=== PATIENT | male | born 1980 | race Caucasian/White ===

== ENCOUNTER 2025-03-31 00:37 | Emergency (ER) | payer MEDICAID, SELFPAY ==
[2025-03-31 00:38] VITALS: BP 157/76; PULSE 65; RESP 16; TEMP 38.2; O2SAT 99; BMI 34.2
--- NOTE | 2025-03-31 01:25 | CT_ITS ---
PROCEDURE: ABDOMEN/PELVIS W IV CONT ONLY 03/31/2025 REASON FOR EXAM: ABD PAIN TECHNIQUE: ABDOMEN/PELVIS W IV CONT ONLY. Coronal and Sagittal reconstruction series were provided. ORAL CONTRAST TYPE: None. CONTRAST: Isovue 370 VOLUME: 100 mL One or more dose reduction techniques were used (e.g., Automated exposure control, adjustment of the mA and/or kV according to patient size, use of iterative reconstruction technique. RADIATION DOSE SUMMARY: CTDlvol: 21.66 mGy DLP: 1353 mGycm COMPARISON: None. FINDINGS: Subsegmental atelectatic changes in the right lower lobe. Mild diffuse irregularity of the hepatic contour, probably chronic parenchymal liver disease. Splenomegaly measuring 19 cm. Minimal amount of reactive free pelvic fluid. Diffuse thickening of the stomach suggestive of gastritis. Fat containing umbilical hernia without incarceration. Diffuse spondylosis. Normal gallbladder and extrahepatic biliary system. Normal pancreas. Normal bilateral adrenal glands. Normal size of the right kidney. There is no right renal mass. There are no right renal calculi. There is no right hydronephrosis. Normal visualized right ureter. Normal size of the left kidney. There is no left renal mass. There are no left renal calculi. There is no left hydronephrosis. Normal visualized left ureter. Normal small intestine. Normal colon. The appendix is visualized and appears normal. Normal abdominal aorta. Normal inferior vena cava. Normal retroperitoneum. Normal urinary bladder. There is no pelvic mass lesion or lymphadenopathy. CT/Abdomen/Pelvis W IV Cont ONLY IMPRESSION: Subsegmental atelectatic changes in the right lower lobe. Mild diffuse irregularity of the hepatic contour, probably chronic parenchymal liver disease. Splenomegaly measuring 19 cm. Minimal amount of reactive free pelvic fluid. Diffuse thickening of the stomach suggestive of gastritis. Fat containing umbilical hernia without incarceration. Diffuse spondylosis. Reading Location: [facility]
[2025-03-31 02:38] VITALS: BP 160/81; PULSE 71; RESP 18; O2SAT 98
[2025-03-31 02:40] LABS: Bacteria 0 SEEN /hpf (None Seen); Mucous, Urine 0 SEEN /hpf (<or=2+)
[2025-03-31] MEDS: Acetaminophen 500 MG Tablet 1000 MG PO (02:41)
[2025-03-31 02:45] LABS: Color, Urine Yellow (Yellow); Glucose, Dipstick Normal (Normal); Ketone-Dipstick 5 mg/dl (Negative); Leukocyte Esterase-Dipstick 25 /ul (Negative); Nitrite-Dipstick Negative (Negative); Occult Blood-Urine 25 /ul (Negative); Protein-Dipstick 30 mg/dl (Negative); Urine Clarity Clear (Clear); Urine Urobilinogen 12 mg/dl (Normal); Urine pH 6.5 (5.0 - 8.0)
[2025-03-31 02:54] LABS: Urine Bilirubin Dipstick 3 mg/dL (Negative)
[2025-03-31 02:58] LABS: Red Blood Cells-Urine 0-5 SEEN /hpf (0-5)
[2025-03-31 03:01] LABS: Squamous Epithelial Cells - UA 0-5 SEEN /hpf (0-5); White Blood Cells 0-5 SEEN /hpf (0-5)
[2025-03-31 03:10] LABS: Absolute Lymphocyte Count 0.68 X10^3/uL (0.83-4.51); Absolute Neutrophil Count 2.2 X10^3/uL (2.0-7.7); Basophil# 0.01 X10^3/uL; Basophil% 0.3 % (0-1); Hematocrit 37.2 % (40-54); Hemoglobin 13.4 g/dL (13.0-16.5); Lymphocyte # 0.68 X10^3/ul (0.83-4.51); Lymphocyte % 21.2 % (19-41); Mean Corpuscular Hgb 29.7 pg (27.0-32.0); Mean Corpuscular Volume 82.5 fL (80-94); Mean Platelet Vol. 10.8 fl (6.2-12.0); Monocyte# 0.36 X10^3/uL; Monocyte% 11.2 % (0-10); NRBC Flagged by Analyzer 0 % (0-5); Neutrophil # 2.15 X10^3/uL (2.7-7.7); POSITIVE COUNT YES; Platelet Count 65 K/mm3 (150-450); RBC Distribution Width CV 14.1 % (11.6-14.6); RBC Distribution Width SD 41.7 fl (35.1-43.9); Red Blood Count 4.51 M/mm3 (4.6-6.2); White Blood Count 3.2 K/mm3 (4.4-11.0)
[2025-03-31 03:12] LABS: Differential Indicated SCAN CRITERIA MET
[2025-03-31 03:32] LABS: AST(SGOT) 80 U/L (<=37); Alanine Aminotransfer ALT/SGPT 126 U/L (<=46); Albumin, Serum 3.4 g/dL (3.5-5.0); Alkaline Phosphatase 63 U/L (40-129); Anion Gap 12 (5-15); BUN 14 mg/dL (4-19); BUN/Creat Ratio 15.9 RATIO (10-20); Bilirubin, Direct 0.61 mg/dL (0.00-0.30); Calcium,Total 8.4 mg/dL (7.6-11.0); Carbon Dioxide 23.2 mmol/L (21.0-32.0); Chloride 91 mmol/L (98-108); Creatinine, Serum 0.86 mg/dL (0.70-1.20); EST Glomerular Filtration Rate 111 (>60); Globulin 3.9 g/dL (2.2-4.2); Glucose 85 mg/dL (70-99); Lipase 42 U/L (13-75); Potassium 3.7 mmol/L (3.3-5.1); Protein, Total 7.2 g/dL (5.9-8.4); Sodium Level 126 mmol/L (133-145); Total Bilirubin 1.33 mg/dL (0.00-1.30)
[2025-03-31 04:00] VITALS: BP 139/76; PULSE 58; RESP 16; TEMP 37.5; O2SAT 97
[2025-03-31] MEDS: Ondansetron 4 MG/2 ML Vial IV (05:06)
[2025-03-31] MEDS: 0.9% Normal Saline (1000mL) 1,000 ML 999 ML IV (05:06)
[2025-03-31] MEDS: Morphine 4 MG/ML Syringe IV (05:07)
--- NOTE | 2025-03-31 05:32 | EX.ED.DYSGE1 ---
HPI History of Present Illness Chief Complaint: Nausea/Vomiting Informant: patient and spouse/S.O. Narrative Narrative: Patient is a 44-year-old male with remote history of IV drug abuse. He states he has been clean and sober for multiple years. He reports in the last 2 days he developed a fever up to 103 at home with bouts of nausea and vomiting and right sided abdominal discomfort. He denies any known sick contact. He states his significant other has been giving him Zofran which has helped reduce the vomiting but is still been persistent. He denies any abdominal surgeries. He states that as his fever has been persistent and as well as his symptoms there is concern for underlying infection and therefore he comes in for evaluation [facility] Medical History no medical history Home Medications ?Medication ?Instructions ?Recorded ?Last Taken ?Type promethazine 25 mg tablet 25 mg PO TID PRN nausea and 03/31/25 Unknown Rx vomiting #21 tabs Allergy/AdvReac Type Severity Reaction Status Date / Time No Known Allergies Allergy Verified 03/31/25 00:40 Social History Smoking Status: Current every day smoker tobacco type: cigarettes ROS ROS ED Constitutional Constitutional ED: Reports chills and fever(s) Eyes Eyes: Denies change in vision ENT ENT ED: Denies sore throat Cardiovascular Cardiovascular: Denies chest pain Respiratory/Chest Respiratory/Chest: Denies cough or dyspnea Gastrointestinal Gastrointestinal: Reports abdominal pain, nausea and vomiting; Denies diarrhea Genitourinary Genitourinary ED: Denies dysuria or hematuria Musculoskeletal Musculoskeletal: Reports back pain and myalgias Integumentary Denies rash Neurologic Neurologic: Denies headache(s) Hematologic/Lymphatic Hematologic/Lymphatic: Denies easy bleeding or easy bruising EXAM Physical Exam Const Vital Signs: 03/31/25 00:38 03/31/25 02:38 03/31/25 04:00 Temperature 100.7 F H 99.5 F H Temperature Source Oral Oral Pulse Rate 65 71 58 L Respiratory Rate 16 18 16 Blood Pressure 157/76 H 160/81 H 139/76 H Blood Pressure Mean 103 107 97 Pulse Ox 99 98 97 Oxygen Delivery Method Room Air Room Air Room Air 03/31/25 05:33 Temperature 99.3 F H Temperature Source Pulse Rate 66 Respiratory Rate 16 Blood Pressure 137/77 H Blood Pressure Mean 97 Pulse Ox 99 Oxygen Delivery Method Positive well nourished and well developed General Appearance ED: well developed; Negative for pallor HEENT Reports dry mucous membranes HEENT Narrative: Normocephalic atraumatic No tongue or lip swelling no oral lesions no airway edema or compromise Mucous membranes are mildly dry and tacky; no secondary findings to suggest infection in the posterior pharynx Mouth ED: Yes dry mucous membranes Mouth: dry mucous membranes Eyes PERRL and EOMs intact bilaterally General Eye ED: Negative for scleral icterus Neck supple Neck Narrative: No nuchal rigidity or meningeal signs Chest Wall palpation of chest normal Resp normal respiratory effort Resp Narrative: There is mild expiratory wheeze diffusely without nasal flaring retractions tachypnea or accessory muscle use Cardio regular rate and regular rhythm Rate: other Other Details: Radial and carotid pulses are equal and symmetric GI non-distended and no masses GI Narrative: Abdomen is soft and nondistended with hyperactive bowel sounds. There is pain with palpation in the midepigastric right upper quadrant and right sided abdomen diffusely. No voluntary guarding or rigidity or pulsatile mass. Negative Garnett sign. Negative heel strike Auscultation: hyperactive bowel sounds Palpation: soft Back/Spine Back/Spine Narrative: Mild right CVA pain noted Extremity normal to inspection Neuro oriented x3, CN's II-XII intact bilaterally and no sensory deficits noted Sensorium / Orientation: alert Motor Exam: strength 5/5 throughout Psych mental status grossly normal Skin no rashes or lesions noted and No skin turgor normal Skin Narrative: Skin turgor is increased consistent with dehydration However no jaundice or overlying soft tissue skin changes to suggest trauma or infection General Skin Exam: Negative for jaundice or pallor MDM MDM MDM Narrative Medical decision making narrative: Patient arrived to the ER mildly febrile but otherwise with stable vitals. He reported roughly 2 days of fever accompanied by abdominal discomfort with nausea and vomiting. There is concern for biliary colic versus acute cholecystitis versus pancreatitis versus colitis or diverticulitis. Patient could also have atypical presentation for kidney stone or acute pyelonephritis. Secondary to his basic labs were obtained with a CT scan of the abdomen and pelvis with IV contrast. Labs revealed thrombocytopenia and a value of 65 but this is above a intervention level especially as he has no signs of of spontaneous bleeding. There is mild elevation to his liver enzymes however the CT scan does show changes consistent with developing cirrhosis. Urine sample shows no sign of infection going against UTI/pyelonephritis and CT scan also reveals no sign of kidney stone or hydronephrosis. CT scan also showed no obvious intestinal pathology such as derangement to the gallbladder or acute appendicitis. After treatment in the ER the patient's temperature resolved and vitals remained stable and he reported improvement of his pain and has been no further bouts of vomiting. I do feel at this time that based on his location of pain and elevated liver enzymes he does require an ultrasound. We discussed waiting in the ER for ultrasound at dayshift but he states overall he is feeling better and would prefer to get it as an outpatient and therefore will be ordered for him as an outpatient. Patient agrees to return to the ER if his symptoms worsen or his fever does not resolve spontaneously over the next few days. However at this time as vitals are stable labs reveal no clinically significant findings and CT scan reveals no obvious source of infection he is otherwise safe for discharge History & Record Review Discussion w/independent historian: Patient and Significant other Lab Data Attestation: I reviewed the patient's lab results. Labs: Laboratory Results - last 24 hr 03/31/25 03/31/25 02:30 02:53 WBC 3.2 L RBC 4.51 L Hgb 13.4 Hct 37.2 L MCV 82.5 MCH 29.7 MCHC 36.0 RDW Std Deviation 41.7 RDW Coeff of Rivas 14.1 Plt Count 65 L MPV 10.8 Immature Gran % (Auto) 0.300 Neut % (Auto) 67.0 Lymph % (Auto) 21.2 [place] % (Auto) 11.2 H Eos % (Auto) 0.0 Baso % (Auto) 0.3 Absolute Neuts (auto) 2.2 Absolute Lymphs (auto) 0.68 L Nucleated RBC % 0 Sodium 126 L Potassium 3.7 Chloride 91 L Carbon Dioxide 23.2 Anion Gap 12 BUN 14 Creatinine 0.86 Estim Creat Clear Calc 133.80 Est GFR (MDRD) Non-Af 111 BUN/Creatinine Ratio 15.9 Glucose 85 Calcium 8.4 Total Bilirubin 1.33 H Direct Bilirubin 0.61 H AST 80 H ALT 126 H Alkaline Phosphatase 63 Total Protein 7.2 Albumin 3.4 L Globulin 3.9 Lipase 42 Urine Color Yellow Urine Clarity Clear Urine pH 6.5 Ur Specific [employer] 1.010 Urine Protein 30 H Urine Glucose (UA) Normal Urine Ketones 5 H Urine Occult Blood 25 H Urine Nitrite Negative Urine Bilirubin 3 H Urine Urobilinogen 12 H Ur Leukocyte Esterase 25 H Urine RBC 0-5 SEEN Urine WBC 0-5 SEEN Ur Squamous Epith Cells 0-5 SEEN Urine Bacteria 0 SEEN Urine Mucus 0 SEEN Radiography Diagnostic Testing: Clinical Impression(s) from Imaging Studies Abdomen/Pelvis CT 03/31/25 01:25 IMPRESSION: Subsegmental atelectatic changes in the right lower lobe. Mild diffuse irregularity of the hepatic contour, probably chronic parenchymal liver disease. Splenomegaly measuring 19 cm. Minimal amount of reactive free pelvic fluid. Diffuse thickening of the stomach suggestive of gastritis. Fat containing umbilical hernia without incarceration. Diffuse spondylosis. Reading Location: [place] [id number] Discharge Plan Triage Chief Complaint: Nausea/Vomiting ED Provider: Neftali Varma Dx/Rx/DC Orders Clinical Impression: Pyrexia, Abdominal pain, Thrombocytopenia, Nausea & vomiting Instructions: Abdominal Pain, Thrombocytopenia, ED FUO Adult Prescriptions: New promethazine 25 mg tablet 25 mg PO TID PRN (Reason: nausea and vomiting) Qty: 21 0RF Other Ambulatory Orders: Abdomen Complete (Routine) Facility: [facility] - Location: [facility] Ordered By: Dr. Neftali Varma Primary Care Provider: Care Physician,No Primary Referrals: Jay Jay Finn MD [Med Staff - Active Staff] - Care Physician,No Primary [Primary Care Provider] - Activity Restrictions/Additional Instructions: Your workup today did not reveal any obvious source of infection such as UTI or acute appendicitis or infection to your gallbladder. There were changes to your liver on CAT scan concerning for cirrhosis. Please obtain the outpatient abdominal ultrasound to further assess the cause of your pain and fever. Follow-up with Dr. Finn for further evaluation as you may require referral to a specialist or more testing based on your lab abnormalities and changes noticed on CT scan. If your symptoms worsen or your fever persists over 1 week or you have any further concerns please return to the ER for repeat evaluation Print Language: Mohawk Disposition Disposition: Home, Self Care Discharge Date/Time: 03/31/25 05:36
[2025-03-31 05:33] VITALS: BP 137/77; PULSE 66; RESP 16; TEMP 37.4; O2SAT 99
== END 2025-03-31 05:36 | disposition home or self-care (01) ==
PROVIDERS: Emergency Provider Emergency Medicine; Visit Provider Emergency Medicine
DX: R50.9 Fever, unspecified (principal); F19.11 Other psychoactive substance abuse, in remission; R11.2 Nausea with vomiting, unspecified; D69.6 Thrombocytopenia, unspecified; R06.2 Wheezing; R10.9 Unspecified abdominal pain; M54.9 Dorsalgia, unspecified; F17.210 Nicotine dependence, cigarettes, uncomplicated
CPT/HCPCS: 36415; 74177; 80048; 80076; 81001; 83690; 85025; 96361; 96374; 96375; 99282; Q9967; A4216; J2405